=== PATIENT | female | born 1990 | race Caucasian/White ===

== ENCOUNTER 2017-02-28 12:01 | Emergency (ER) | payer MEDICAID, OTHER ==
[~2017-02-28] VITALS: Ht 152.4 cm; Wt 64.0 kg
[2017-02-28] MEDS ORDERED: OMEG1CAP17 PO (12:54)
[2017-02-28] MEDS ORDERED: PREN-88 PO (12:54)
[2017-02-28 13:55] LABS: CLARITY URINE CLEAR (CLEAR); COLOR URINE DARK YELLOW (YELLOW); GLUCOSE URINE NEGATIVE (NEGATIVE); KETONES URINE TRACE (NEGATIVE); LEUKOCYTE ESTERASE URINE TRACE (NEGATIVE); NITRITE URINE NEGATIVE (NEGATIVE); OCCULT BLOOD URINE NEGATIVE (NEGATIVE); PROTEIN URINE NEGATIVE (NEGATIVE); SPECIFIC GRAVITY URINE 1.021 (1.005-1.030)
[2017-02-28] MEDS ORDERED: SODIUM CHLORIDE 0.9% 1,000 ML IV ONE (15:45)
[2017-02-28 16:00] VITALS: BP 115/85
[2017-02-28 17:28] LABS: BASOPHILS % 0.4 % (0.0-2.0); EOSINOPHILS % 0.9 % (0.0-5.0); HEMATOCRIT. 29.9 % (36.0-48.0); HEMOGLOBIN. 9.8 g/dL (12.0-16.0); LYMPHOCYTES % 15.1 % (20.0-50.0); MEAN CORPUSCULAR HEMOGLOBIN 27.6 pg (28.0-32.0); MEAN CORPUSCULAR VOLUME 84.3 fL (81.0-99.0); MEAN PLATELET VOLUME 8.3 fl (7.4-10.4); MONOCYTES % 8.6 % (2.0-8.0); PLATELET 241 x1000/uL (130-400); RED BLOOD CELL COUNT 3.54 mill/uL (4.2-5.4); RED CELL DISTRIBUTION WIDTH 14.1 % (11.6-14.6)
[2017-02-28 17:35] LABS: CHLORIDE 104 mEq/L (98-107)
[2017-02-28 17:36] LABS: PROTHROMBIN TIME 10.2 sec (9.4-11.6)
[2017-02-28 17:44] LABS: AMYLASE 65 IU/L (25-115); CARBON DIOXIDE 23 mEq/L (21-32)
== END 2017-02-28 18:40 ==
LOC: ER 12:37 → UNDOADMOB 12:39 → L&D 12:39 → UNDODISOB 14:28 → CANRESERV 17:21 → ENRESERV 17:21 → ER 18:40 → CANBEDREQ 03-01 01:35
DX: O99.612 Diseases of the digestive system complicating pregnancy, second trimester (principal); K82.9 Disease of gallbladder, unspecified; K76.0 Fatty (change of) liver, not elsewhere classified; O26.892 Other specified pregnancy related conditions, second trimester; R51 Headache; R21 Rash and other nonspecific skin eruption; R50.9 Fever, unspecified; Z3A.25 25 weeks gestation of pregnancy
CPT/HCPCS: 36415; 76700; 76805; 80053; 81001; 82150; 83690; 85025; 85610; 87040; 87086; 87804; 96360; 96361; 99281; 99285; J7030

== ENCOUNTER 2017-12-22 | Emergency (ER) | payer MEDICAID, OTHER ==
[~2017-12-22] VITALS: Ht 152.4 cm; Wt 64.0 kg
[~2017-12-22] MED LIST: PREN-88 PO
[2017-12-22 02:29] LABS: CLARITY URINE CLEAR (CLEAR); COLOR URINE YELLOW (YELLOW); KETONES URINE NEGATIVE (NEGATIVE); LEUKOCYTE ESTERASE URINE TRACE (NEGATIVE); NITRITE URINE NEGATIVE (NEGATIVE); OCCULT BLOOD URINE NEGATIVE (NEGATIVE); PROTEIN URINE NEGATIVE (NEGATIVE); SPECIFIC GRAVITY URINE 1.033 (1.005-1.030)
[2017-12-22] MEDS ORDERED: SODIUM CHLORIDE 0.9% 1,000 ML IV ONE (02:40)
[2017-12-22] MEDS ORDERED: KETOROLAC 30MG/ML VIAL IV STA (02:40)
[2017-12-22] MEDS ORDERED: ONDANSETRON HCL 4MG/2ML VIAL IV STA (02:40)
[2017-12-22 03:10] LABS: BASOPHILS % 0.6 % (0.0-2.0); EOSINOPHILS % 1.2 % (0.0-5.0); HEMATOCRIT. 35.2 % (36.0-48.0); HEMOGLOBIN. 11.4 g/dL (12.0-16.0); LYMPHOCYTES % 37.3 % (20.0-50.0); MEAN CORPUSCULAR HEMOGLOBIN 25.4 pg (28.0-32.0); MEAN CORPUSCULAR VOLUME 78.5 fL (81.0-99.0); MEAN PLATELET VOLUME 8.8 fl (7.4-10.4); NEUTROPHILS % 51.9 % (40.0-76.0); PLATELET 256 x1000/uL (130-400); RED BLOOD CELL COUNT 4.48 mill/uL (4.2-5.4); RED CELL DISTRIBUTION WIDTH 16.6 % (11.6-14.6)
[2017-12-22 03:14] LABS: CHLORIDE 107 mEq/L (98-107)
[2017-12-22 03:16] LABS: HCG SCREEN NEGATIVE; PROTHROMBIN TIME 10.7 sec (9.4-11.6)
[2017-12-22 03:19] LABS: ETHANOL BLOOD < 10 mg/dL
[2017-12-22] MEDS ORDERED: CEFTRIAXONE 1 G PREMIX 50 ML IV SCH (05:03)
[2017-12-22 06:33] VITALS: BP 113/79
== END 2017-12-22 06:43 | disposition home or self-care (01) ==
LOC: ER
DX: N20.1 Calculus of ureter (principal); N39.0 Urinary tract infection, site not specified; K76.0 Fatty (change of) liver, not elsewhere classified; R79.89 Other specified abnormal findings of blood chemistry
CPT/HCPCS: 36415; 74176; 80053; 81003; 83605; 83690; 84703; 85025; 85610; 87086; 96365; 96375; 99285; G0482; J0696; J1885; J2405; J7030; Z7610